=== PATIENT | male | born 1990 | race Caucasian/White ===

== ENCOUNTER 2017-06-26 01:14 | Emergency (ER) | payer MEDICAID | END 2017-06-26 02:30 | disposition left against medical advice (07) | LOC: ER 01:58 | DX: Z53.21 Procedure and treatment not carried out due to patient leaving prior to being seen by health care provider (principal) ==

== ENCOUNTER 2018-08-06 02:39 | Emergency (ER) | payer MEDICAID ==
[~2018-08-06] VITALS: Ht 170.2 cm; Wt 105.0 kg
[2018-08-06 03:59] LABS: CHLORIDE 109 mEq/L (98-107)
[2018-08-06 04:00] LABS: PROTHROMBIN TIME 10.2 sec (9.1-11.1)
[2018-08-06 04:01] LABS: BASOPHILS % 0.4 % (0.0-2.0); EOSINOPHILS % 1.5 % (0.0-5.0); HEMATOCRIT. 47.8 % (42.0-52.0); HEMOGLOBIN. 16.5 g/dL (14.0-18.0); LYMPHOCYTES % 22.9 % (20.0-50.0); MEAN CORPUSCULAR HEMOGLOBIN 31.9 pg (28.0-32.0); MEAN CORPUSCULAR VOLUME 92.4 fL (80.0-94.0); NEUTROPHILS % 65.2 % (40.0-76.0); PLATELET 199 x1000/uL (130-400); RED BLOOD CELL COUNT 5.17 mill/uL (4.7-6.1); RED CELL DISTRIBUTION WIDTH 13.9 % (11.6-14.6)
[2018-08-06 05:42] LABS: CLARITY URINE CLEAR (CLEAR); COLOR URINE YELLOW (YELLOW); KETONES URINE NEGATIVE (NEGATIVE); LEUKOCYTE ESTERASE URINE NEGATIVE (NEGATIVE); NITRITE URINE NEGATIVE (NEGATIVE); OCCULT BLOOD URINE 1+ (NEGATIVE); PROTEIN URINE NEGATIVE (NEGATIVE); SPECIFIC GRAVITY URINE 1.018 (1.005-1.030); UROBILINOGEN URINE 0.2 E.U./dL (0.2-1.0)
[2018-08-06] MEDS ORDERED: CEFTRIAXONE SODIUM 250 MG/VIAL IM ONE (05:45)
[2018-08-06] MEDS ORDERED: AZITHROMYCIN 500 MG TABLET PO ONE (05:45)
[2018-08-06] MEDS ORDERED: LIDOCAINE HCL/PF 1% 10 MG/ML 5ML VIAL ONE (06:24)
[2018-08-06 06:29] VITALS: BP 121/67
== END 2018-08-06 06:31 | disposition home or self-care (01) ==
LOC: ER 02:39
DX: K42.9 Umbilical hernia without obstruction or gangrene (principal); N48.1 Balanitis; R31.9 Hematuria, unspecified; N53.12 Painful ejaculation; F17.200 Nicotine dependence, unspecified, uncomplicated
CPT/HCPCS: 36415; 80053; 81003; 83690; 85025; 85610; 96372; 99283; J0696; J3490

== ENCOUNTER 2019-05-26 10:46 | Inpatient (IN) | payer SELFPAY ==
[~2019-05-26] VITALS: Ht 170.2 cm; Wt 109.8 kg
[2019-05-26] MEDS ORDERED: ONDANSETRON HCL 4MG/2ML INJ IV STA (13:24)
[2019-05-26] MEDS ORDERED: SODIUM CHLORIDE 0.9% 1,000 ML IV ONE (13:24)
[2019-05-26] MEDS ORDERED: MORPHINE SULFATE 4 MG/ML CPJ (NOT FOR IM USE) IV STA (13:24)
[2019-05-26 13:54] LABS: BASOPHILS % 0.3 % (0.0-2.0); EOSINOPHILS % 1.1 % (0.0-5.0); HEMATOCRIT. 44.7 % (42.0-52.0); HEMOGLOBIN. 15.5 g/dL (14.0-18.0); LYMPHOCYTES % 20.2 % (20.0-50.0); MEAN CORPUSCULAR HEMOGLOBIN 32.1 pg (28.0-32.0); MEAN CORPUSCULAR VOLUME 92.7 fL (80.0-94.0); MEAN PLATELET VOLUME 9.8 fl (7.4-10.4); MONOCYTES % 11.4 % (2.0-8.0); PLATELET 182 x1000/uL (130-400); RED BLOOD CELL COUNT 4.83 mill/uL (4.7-6.1); RED CELL DISTRIBUTION WIDTH 14.4 % (11.6-14.6)
[2019-05-26 13:58] LABS: CHLORIDE 106 mEq/L (98-107)
[2019-05-26] MEDS ORDERED: PIPERACILLIN/TAZ 3.375G PREMIX 50 ML IV ONE (15:15)
[2019-05-26] MEDS ORDERED: METRONIDAZOLE 500 MG PREMIX 100 ML IV ONE (15:15)
[2019-05-26] MEDS ORDERED: IOHEXOL-300 100 ML BOTTLE ONE (15:22)
[2019-05-26 16:23] LABS: CLARITY URINE CLEAR (CLEAR); COLOR URINE YELLOW (YELLOW); KETONES URINE NEGATIVE (NEGATIVE); LEUKOCYTE ESTERASE URINE NEGATIVE (NEGATIVE); NITRITE URINE NEGATIVE (NEGATIVE); OCCULT BLOOD URINE 1+ (NEGATIVE); PROTEIN URINE NEGATIVE (NEGATIVE); SPECIFIC GRAVITY URINE 1.028 (1.005-1.030)
[2019-05-26] MEDS ORDERED: MORPHINE SULFATE 4 MG/ML CPJ (NOT FOR IM USE) IV ONE (16:30)
[2019-05-26] MEDS ORDERED: LORAZEPAM 0.5MG TABLET PO PRN (17:15)
[2019-05-26] MEDS ORDERED: KETOROLAC 15MG/ML VIAL IV PRN (17:15)
[2019-05-26] MEDS ORDERED: ACETAMINOPHEN 325MG TABLET PO PRN (17:15)
[2019-05-26] MEDS ORDERED: DOCUSATE SODIUM 100MG CAPSULE PO PRN (17:15)
[2019-05-26] MEDS ORDERED: MAGNESIUM/ALUMINUM HYDROXIDE/SIMETHICONE 30ML UDC PO PRN (17:15)
[2019-05-26] MEDS ORDERED: IPRATROPIUM/ALBUTEROL 0.5-3(2.5)MG/3ML NEB HHN PRN (17:15)
[2019-05-26] MEDS ORDERED: ONDANSETRON HCL 4MG/2ML INJ IV PRN (17:15)
[2019-05-26] MEDS ORDERED: GUAIFENESIN 200MG/10ML SUGAR FREE UDC PO PRN (17:15)
[2019-05-26] MEDS ORDERED: CLONIDINE 0.1MG TABLET PO PRN (17:15)
[2019-05-26] MEDS ORDERED: NITROGLYCERIN 0.4MG TABLET SL SL PRN (17:15)
[2019-05-26] MEDS ORDERED: ZOLPIDEM TARTRATE 5MG TABLET PO PRN (17:15)
[2019-05-26 17:52] LABS: ETHANOL BLOOD < 10 mg/dL
[2019-05-26 17:55] LABS: LDL CHOLESTEROL 101 mg/dL (5-100)
[2019-05-26 17:56] LABS: HDL CHOLESTEROL 37 mg/dL (40-59)
[2019-05-26] MEDS ORDERED: POTASSIUM CHLORIDE 20MEQ TABLET SR PO NR (18:45)
[2019-05-26 20:00] VITALS: BP 108/55
[2019-05-26] MEDS: FAMOTIDINE 20MG TABLET PO SCH (21:23)
[2019-05-26] MEDS: PIPERACILLIN/TAZOBACTAM 3.375 G in DEXT 5% WATER 100 ML IV SCH ×2 (22:48→23:07)
[2019-05-27] VITALS: BP 103/53
[2019-05-27 04:00] VITALS: BP 103/57
[2019-05-27] MEDS: PIPERACILLIN/TAZOBACTAM 3.375 G in DEXT 5% WATER 100 ML IV SCH (05:58)
[2019-05-27 08:34] VITALS: BP 121/59
[2019-05-27] MEDS: FAMOTIDINE 20MG TABLET PO SCH (09:25)
[2019-05-27 12:31] VITALS: BP 136/65
== END 2019-05-27 14:03 | disposition home or self-care (01) | DRG 244 ==
LOC: ER 10:51 → ENRESERV 19:19 → 6EST 20:35
PROVIDERS: ADMIT Internal Medicine; ATTEND Internal Medicine
DX: K57.32 Diverticulitis of large intestine without perforation or abscess without bleeding (principal); K76.0 Fatty (change of) liver, not elsewhere classified; E83.51 Hypocalcemia; E66.9 Obesity, unspecified; E87.6 Hypokalemia; F17.210 Nicotine dependence, cigarettes, uncomplicated; Z68.37 Body mass index [BMI] 37.0-37.9, adult
CPT/HCPCS: 36415; 74177; 76870; 80061; 80320; 81003; 83036; 83605; 93976; 99285; J1885; J2270; J2405; J2543; J3490; J7030; J7060; Q9967; G0480

== ENCOUNTER 2023-01-05 01:38 | Emergency (ER) | payer SELFPAY ==
[~2023-01-05] VITALS: Ht 170.2 cm; Wt 116.0 kg
[~2023-01-05 01:38] MED LIST: LEVO-65 MT; METR500T MT
[2023-01-05 02:59] LABS: BASOPHILS % 0.9 % (0.0-2.0); EOSINOPHILS % 0.4 % (0.0-5.0); HEMATOCRIT. 43.5 % (42.0-52.0); LYMPHOCYTES % 11.9 % (20.0-50.0); MEAN CORPUSCULAR HEMOGLOBIN 31.5 pg (28.0-32.0); MEAN CORPUSCULAR VOLUME 91.7 fL (80.0-94.0); MEAN PLATELET VOLUME 9.6 fl (7.4-10.4); NEUTROPHILS % 75.8 % (40.0-76.0); PLATELET 206 x1000/uL (130-400); RED BLOOD CELL COUNT 4.75 mill/uL (4.7-6.1); RED CELL DISTRIBUTION WIDTH 14.5 % (11.6-14.6)
[2023-01-05 03:05] LABS: CHLORIDE 105 mEq/L (98-107)
[2023-01-05] MEDS ORDERED: MORPHINE SULFATE 4 MG/ML CPJ (NOT FOR IM USE) IV NR (04:00)
[2023-01-05 04:37] LABS: CLARITY URINE CLOUDY (CLEAR); COLOR URINE YELLOW (YELLOW); KETONES URINE TRACE (NEGATIVE); LEUKOCYTE ESTERASE URINE NEGATIVE (NEGATIVE); NITRITE URINE NEGATIVE (NEGATIVE); OCCULT BLOOD URINE 2+ (NEGATIVE); PROTEIN URINE TRACE (NEGATIVE); SPECIFIC GRAVITY URINE 1.026 (1.005-1.030)
[2023-01-05] MEDS ORDERED: AMOXICILLIN/POTASSIUM CLAVULANATE 875/125MG TAB PO NR (06:15)
[2023-01-05] MEDS ORDERED: ONDA4TAB50 MT (06:19)
[2023-01-05] MEDS ORDERED: HYDR-4001 MT (06:19)
[2023-01-05] MEDS ORDERED: AMOX1TAB16 MT (06:19)
[2023-01-05 06:38] VITALS: BP 110/65
== END 2023-01-05 06:43 | disposition home or self-care (01) ==
LOC: ER 01:38
DX: R10.33 Periumbilical pain (principal)
CPT/HCPCS: 36415; 74176; 80053; 81003; 83605; 83690; 85025; 93005; 96374; 99285; J2270; Z7610

== ENCOUNTER 2023-01-28 10:07 | Emergency (ER) | payer SELFPAY ==
[~2023-01-28] VITALS: Ht 170.2 cm; Wt 113.0 kg
[~2023-01-28 10:07] MED LIST changes: +AMOX1TAB16 MT; +HYDR-4001 MT; +ONDA4TAB50 MT
[2023-01-28] MEDS ORDERED: MAGNESIUM/ALUMINUM HYDROXIDE/SIMETHICONE 30ML UDC PO STA (10:29)
[2023-01-28] MEDS ORDERED: VISCOUS LIDOCAINE 2% 15 ML UDC PO STA (10:29)
[2023-01-28] MEDS ORDERED: FAMOTIDINE 20MG TABLET PO ONE (10:30)
[2023-01-28 10:57] LABS: BASOPHILS % 0.7 % (0.0-2.0); EOSINOPHILS % 0.5 % (0.0-5.0); HEMATOCRIT. 43.2 % (42.0-52.0); HEMOGLOBIN. 14.6 g/dL (14.0-18.0); LYMPHOCYTES % 16.2 % (20.0-50.0); MEAN CORPUSCULAR VOLUME 91.7 fL (80.0-94.0); MEAN PLATELET VOLUME 9.1 fl (7.4-10.4); MONOCYTES % 8.9 % (2.0-8.0); NEUTROPHILS % 73.7 % (40.0-76.0); PLATELET 254 x1000/uL (130-400); RED BLOOD CELL COUNT 4.71 mill/uL (4.7-6.1); RED CELL DISTRIBUTION WIDTH 14.3 % (11.6-14.6)
[2023-01-28 11:06] LABS: CHLORIDE 105 mEq/L (98-107)
[2023-01-28] MEDS ORDERED: FAMOTIDINE 20MG TABLET PO NR (12:35)
[2023-01-28] MEDS ORDERED: VISCOUS LIDOCAINE 2% 15 ML UDC PO NR (12:36)
[2023-01-28] MEDS ORDERED: MAGNESIUM/ALUMINUM HYDROXIDE/SIMETHICONE 30ML UDC PO NR (12:36)
[2023-01-28 12:46] LABS: CLARITY URINE CLOUDY (CLEAR); COLOR URINE ORANGE (YELLOW); KETONES URINE 1+ (NEGATIVE); LEUKOCYTE ESTERASE URINE 1+ (NEGATIVE); NITRITE URINE NEGATIVE (NEGATIVE); OCCULT BLOOD URINE 1+ (NEGATIVE); PROTEIN URINE 1+ (NEGATIVE)
[2023-01-28] MEDS ORDERED: METR-167 MT (14:26)
[2023-01-28] MEDS ORDERED: LEVO750T68 MT (14:26)
[2023-01-28] MEDS ORDERED: METRONIDAZOLE 500 MG PREMIX 100 ML IV ONE (14:30)
[2023-01-28] MEDS ORDERED: LEVOFLOXACIN 750MG PREMIX 150 ML IV ONE (14:30)
[2023-01-28 16:49] VITALS: BP 114/69
== END 2023-01-28 16:58 | disposition home or self-care (01) ==
LOC: ER 10:47 → CANBEDREQ 01-29 23:32
DX: K57.32 Diverticulitis of large intestine without perforation or abscess without bleeding (principal)
CPT/HCPCS: 36415; 74176; 80053; 81003; 83690; 85025; 87086; 96365; 96367; 99285; J1956; J3490; Z7610

== ENCOUNTER 2023-12-24 16:50 | Emergency (ER) | payer OTHER ==
[~2023-12-24] VITALS: Ht 170.2 cm; Wt 105.0 kg
[~2023-12-24 16:50] MED LIST changes: +LEVO750T68 MT; +METR-167 MT
[2023-12-24 17:03] VITALS: O2SAT 99
[2023-12-24 17:33] LABS: BASOPHILS % 0.6 % (0.0-2.0); EOSINOPHILS % 0.3 % (0.0-5.0); HEMATOCRIT. 46.2 % (42.0-52.0); HEMOGLOBIN. 15.5 g/dL (14.0-18.0); MEAN CORPUSCULAR HEMOGLOBIN 31.7 pg (28.0-32.0); MEAN CORPUSCULAR HGB CONC 33.4 g/dL (31.0-37.0); MEAN CORPUSCULAR VOLUME 94.7 fL (80.0-94.0); MEAN PLATELET VOLUME 9.8 fl (7.4-10.4); MONOCYTES % 10.1 % (2.0-8.0); PLATELET 203 x1000/uL (130-400); RED BLOOD CELL COUNT 4.88 mill/uL (4.7-6.1); RED CELL DISTRIBUTION WIDTH 14.8 % (11.6-14.6); WHITE BLOOD COUNT 17.1 x1000/uL (4.5-11.0)
[2023-12-24 17:52] LABS: ALANINE AMINOTRANSFERASE 13 IU/L (10-49); ALBUMIN 4.5 g/dL (3.2-4.8); ASPARTATE AMINOTRANSFERASE 19 IU/L (<34); BILIRUBIN TOTAL 1.2 mg/dL (0.1-1.0); CALCIUM 8.7 mg/dL (8.7-10.4); CARBON DIOXIDE 26 mEq/L (21-32); CHLORIDE 103 mEq/L (98-107); CREATININE 0.8 mg/dL (0.6-1.3); GLUCOSE 97 mg/dL (70-105); POTASSIUM 3.3 mEq/L (3.5-5.1); PROTEIN TOTAL 7.3 g/dL (6.0-8.3); SODIUM 137 mEq/L (136-145); UREA NITROGEN BLOOD 10 mg/dL (9-23)
[2023-12-24] MEDS: POTASSIUM CHLORIDE 20MEQ TABLET SR PO NR (18:52)
[2023-12-24] MEDS: IBUPROFEN 800MG TABLET PO ONE (19:42)
[2023-12-24] MEDS: ONDANSETRON 4MG ODT PO ONE (19:42)
[2023-12-24] MEDS ORDERED: AMOX1TAB16 MT (22:45)
[2023-12-24] MEDS ORDERED: IBUP-2030 MT (22:45)
[2023-12-24] MEDS: AMOXICILLIN/POTASSIUM CLAVULANATE 875/125MG TAB PO NR (22:52)
[2023-12-24 22:57] VITALS: BP 145/76; PULSE 78; RESP 19; TEMP 98.7
== END 2023-12-24 22:58 | disposition home or self-care (01) ==
LOC: ER 16:50
DX: K57.92 Diverticulitis of intestine, part unspecified, without perforation or abscess without bleeding (principal); Z79.899 Other long term (current) drug therapy
CPT/HCPCS: 99284; 74176; 80053; 83690; 85025; 36415; Q0162